=== PATIENT | male | born 1950 | race Caucasian/White ===

== ENCOUNTER 2018-10-12 10:41 | Emergency (ER) | payer MEDICARE, OTHER ==
[2018-10-12 11:45] VITALS: BP 136/83
--- NOTE | 2018-10-12 12:18 | UC ---
Respiratory Complaint HPI - HPI Summary HPI Summary: 67 yo male presents with 3 days of sore throat, productive cough, and sinus pain /pressure/congestion. He has a history of COPD/asthma and has had PNA in the past. Says that when he gets sinus infections or bronchitis that it always develops into pneumonia. He has been using his albuterol inhaler with some relief of his cough/wheezing. Denies fever, chills, SOB, chest pain, n/v. - History of Current Complaint Chief Complaint: UCRespiratory Stated Complaint: CONGESTED,COUGH Time Seen by Provider: 10/12/18 12:18 Hx Obtained From: Patient Onset/Duration: Gradual Onset Severity Initially: Mild Severity Currently: Mild Pain Intensity: 1 Character: Cough: Productive - Allergies/Home Medications Allergies/Adverse Reactions: Allergies Allergy/AdvReac Type Severity Reaction Status Date / Time alcohol Allergy FLUSHED, Verified 10/12/18 11:45 SENSITIVE TO SMELL cephalexin [From Keflex] Allergy severe Verified 10/12/18 11:45 nausea clindamycin Allergy Vomiting Verified 10/12/18 11:45 Penicillins Allergy Anaphylatic Verified 10/12/18 11:45 Shock Perfume [Fragrance] Allergy SMELL Verified 10/12/18 11:45 BOTHERS HIM Sulfa (Sulfonamide Allergy Nausea Verified 10/12/18 11:45 Antibiotics) MULTIPLE CHEMICAL Allergy FRAGRANCE Uncoded 10/12/18 11:45 SENSITIVITIES-FRA LI PMH/Surg Hx/FS Hx/Imm Hx - Additional Past Medical History Additional PMH: Asthma - Surgical History Surgical History: Yes Surgery Procedure, Year, and Place: appendix. tonsils age 7. lt knee surgery meniscus tear. hernia x2. left total knee replacement - Family History Known Family History: Positive: Unknown - Social History Lives: With Family Alcohol Use: None Substance Use Type: None Smoking Status (MU): Never Smoked Tobacco - Immunization History Most Recent Influenza Vaccination: 2015 Most Recent Tetanus Shot: 2015 Most Recent Pneumonia Vaccination: WITHIN 6 YRS Review of Systems All Other Systems Reviewed And Are Negative: Yes Constitutional: Positive: Negative Skin: Positive: Negative Eyes: Positive: Negative ENT: Positive: Nasal Discharge, Sinus Congestion, Sinus Pain/Tenderness Respiratory: Positive: Cough Cardiovascular: Positive: Negative Gastrointestinal: Positive: Negative Neurovascular: Positive: Negative Neurological: Positive: Negative Psychological: Positive: Negative Physical Exam - Summary Physical Exam Summary: GENERAL: NAD. WDWN. No pain distress. SKIN: No rashes, sores, lesions, or open wounds. HEENT: Head: AT/NC Eyes: Conjunctiva clear without inflammation or discharge. Ears: Hearing grossly normal. TMs intact, no bulging, erythema, or edema. Nose: Nasal mucosa mildly swollen and erythematous with clear discharge. TTP maxillary and frontal sinus. Positive post nasal drip Throat: Posterior oropharynx without exudates, erythema, or tonsillar enlargement. Uvula midline. NECK: Supple. Nontender. No lymphadenopathy. CHEST: Mild wheezing throughout. No r/r. No accessory muscle use. Breathing comfortably and in no distress. CV: RRR. Without m/r/g. Pulses intact. Cap refill <2seconds NEURO: Alert. PSYCH: Age appropriate behavior. Triage Information Reviewed: Yes Vital Signs: Initial Vital Signs Temp 98.3 F 10/12/18 11:41 Pulse 73 10/12/18 11:41 Resp 20 10/12/18 11:41 BP 136/83 10/12/18 11:41 Pulse Ox 98 10/12/18 11:41 Vital Signs Reviewed: Yes Diagnostic Evaluation - Laboratory O2 Sat by Pulse Oximetry: 98 Respiratory Course/Dx - Course Course Of Treatment: Sinusitis. Bronchitis. Advised to continue using his inhaler at home and will rx for antibiotics at this time. He says that Biaxin is the only anbx that works for him. - Differential Dx/Diagnosis Provider Diagnosis: Sinusitis, Bronchitis Discharge - Sign-Out/Discharge Documenting (check all that apply): Patient Departure All imaging exams completed and their final reports reviewed: No Studies - Discharge Plan Condition: Stable Disposition: HOME Prescriptions: Clarithromycin TAB* [Biaxin 500 MG TAB*] 500 mg PO BID #14 tab Patient Education Materials: Acute Bronchitis (ED) Referrals: Rosanne Beard MD [Primary Care Provider] - Additional Instructions: If you develop a fever, shortness of breath, chest pain, new or worsening symptoms - please call your PCP or go to the ED. - Billing Disposition and Condition Condition: STABLE Disposition: Home - Attestation Statements Provider Attestation: Per institutional requirements, I have reviewed the chart, however, I was not consulted specifically or made aware of this patient by the midlevel provider. I did not personally evaluate, interact with , or disposition this patient.
== END 2018-10-12 12:40 | disposition home or self-care (01) ==
LOC: UCEAST 10:41
DX: J32.9 Chronic sinusitis, unspecified (principal); J44.9 Chronic obstructive pulmonary disease, unspecified; Z96.652 Presence of left artificial knee joint; Z88.1 Allergy status to other antibiotic agents; Z88.0 Allergy status to penicillin; Z88.2 Allergy status to sulfonamides
CPT/HCPCS: 99212; G0463

== ENCOUNTER → 2019-05-24 11:05 | Day surgery (SDC) | payer MEDICARE, OTHER ==
[~2019-05-24 11:05] MED LIST: Buffered Lidocaine 1% SYRIN* 1 ML/SYRINGE INTRADERM ONE; Bupivacaine 0.5%* 50 ML MDV VIAL ONE; Clindamycin 900 MG/D5W BAG(*) 900 MG/50 ML BAG IVPB ONE; Lactated Ringers 1000 ML Bag* 1,000 ML IV SCH; Lidocaine 1% INJ* 10 MG/ML 30 ML SDV ONE; Midazolam* 1 MG/ML 2 ML VIAL (2 MG) ONE; Naloxone* 0.4 MG/ML 1 ML VIAL IV PRN; Propofol* 10 MG/ML 20 ML BTL ONE; fentaNYL* 50 MCG/ML 2 ML VIAL (100 MCG VIAL) ONE
[2019-05-24 16:04] VITALS: BP 130/77
--- NOTE | 2019-05-24 22:18 | OP ---
DATE OF OPERATION: 05/24/19 - [facility] DATE OF : 52 SURGEON: Anish Fowler MD. ANESTHESIA: Local/MAC. PRE-OP DIAGNOSIS: Right carpal tunnel syndrome. POST-OP DIAGNOSIS: Right carpal tunnel syndrome. OPERATIVE PROCEDURE: Right carpal tunnel release. INDICATIONS: Mr. Grider is a 68-year-old male who has had a long history of troubles with bilateral carpal tunnel syndrome. It has never been that bad, so he has not really pushed to do that much about it. Few weeks ago, it suddenly become much worse where he had much more troubles with his dexterity, trying to grasp and hang on to objects, and significant pain while trying to sleep. He has been taking Ultram for this and initially, 1 tablet worked well, but has been having a slowly escalating dose. He underwent EMGs, which found a severe right carpal tunnel syndrome. I discussed with him that a carpal tunnel release should work well to decrease his night pain and by getting the pressure off of the median nerve that this will give the body a chance to heal the nerve and try and improve his numbness and tingling. I warned him that many times the finger pulps still have some altered sensation. Other risks of surgery such as infection, scar formation, pillar pain, and median nerve injury were discussed and he had wished to proceed. ESTIMATED BLOOD LOSS: Negligible. COMPLICATIONS: None. DESCRIPTION OF PROCEDURE: The patient was brought to the OR and sedation was given. Tourniquet was placed over the proximal right arm. It was used during the case. The total time would be approximately 10 minutes. Right hand was prepped and then draped. Skin over the incisional area was infiltrated using 15 cc of 0.25% Marcaine mixed with 1% lidocaine. Esmarch was used to exsanguinate the arm and tourniquet was raised. Incision was made in line with the radial border of the ring finger and palmaris longus, beginning just distal to the level of the abducted thumb. Incision was carried down through the skin and subcutaneous tissues. Palmar fat was sharply cut and a self-retainer was placed. Palmar fascia was immediately evident and sharply incised. With this incised, the transverse carpal ligament was immediately evident. A small snap was placed on the edge of the ligament and used as a cutting guide to divide the distal most centimeter or so of the transverse carpal ligament. I pushed upwards as I came through and this had to be repeated as I could see then the very edge of the nerve and then placed the snap again directly on top of the nerve and divided the distal most portion of the transverse carpal ligament. The nerve was now clearly visible and Biomet double banquet pilot was then easily passed. Cutting guide was placed and a meniscotome was then used to divide the remainder of the transverse carpal ligament. Blunt snap was then easily passed over the topside of the median nerve and no remaining bands of the transverse carpal remained. The wound was irrigated using a bulb syringe and then closed using 4-0 nylon sutures. Tourniquet was let down and no significant bleeding was encountered. Sterile dressing was applied. The patient was then awakened, stable, and transferred to the recovery room. DISPOSITION/DISCHARGE SUMMARY: Mr. Grider is a 68-year-old male who just underwent a right carpal tunnel release. He tolerated the procedure well. No complications. He was rolled in here into the recovery room. Once he can tolerate p.o., his pain is well controlled and can void, he will be discharged home. Script for Ultram will be supplemented as he already has Ultram available. He has instructions to keep his dressing clean, dry, and intact for the next 3 days, but after that he make take his dressing down, cover the sutures with Band-Aid, may shower, wash and get it wet, but should not soak it. I would like to see him in the office in approximately 10 days, remove the sutures, and make sure he is doing well. If there are any problems or if anything odd should occur, there are instructions to give the office a call. [id number]/[facility] #: [id number] JULIO CÉSAR
== END | disposition home or self-care (01) ==
LOC: OR 11:05
PROVIDERS: ATTEND Orthopaedic Surgery
DX: G56.01 Carpal tunnel syndrome, right upper limb (principal); Z68.33 Body mass index [BMI] 33.0-33.9, adult; M19.90 Unspecified osteoarthritis, unspecified site; G47.33 Obstructive sleep apnea (adult) (pediatric); Z88.0 Allergy status to penicillin; Z88.8 Allergy status to other drugs, medicaments and biological substances
CPT/HCPCS: J2250; J2704; J3010; J3490